=== PATIENT | male | born 1960 | race Caucasian/White ===

== ENCOUNTER → 2017-01-29 | Outpatient (CLI) | payer OTHER ==
[~2017-01-29] MED LIST: ASPI325T80 PO; METO-99 PO; OMNIPAQUE 350 MG/ML, 150 ML BOTTLE ONE
== END | disposition home or self-care (01) ==
LOC: CFH 09:30
PROVIDERS: ATTEND Internal Medicine Cardiovascular Disease
DX: Z01.818 Encounter for other preprocedural examination (principal); I48.91 Unspecified atrial fibrillation; I48.92 Unspecified atrial flutter
CPT/HCPCS: 71020; 75572; Q9967

== ENCOUNTER 2017-02-05 06:30 | Observation (INO) | payer OTHER ==
[~2017-02-05] VITALS: Ht 170.2 cm; Wt 75.0 kg
[~2017-02-05 06:30] MED LIST changes: -OMNIPAQUE 350 MG/ML, 150 ML BOTTLE ONE
[2017-02-05] MEDS ORDERED: SODIUM CHLORIDE 0.9% 1,000 ML IV SCH (06:44)
[2017-02-05 06:49] VITALS: BP 127/76
[2017-02-05] MEDS ORDERED: SODIUM CHLORIDE 0.9% 1,000 ML IV ONE (07:00)
[2017-02-05] MEDS ORDERED: APIX5TAB PO (07:03)
[2017-02-05] MEDS ORDERED: PROP150T2 PO (07:03)
[2017-02-05 07:11] LABS: HEMATOCRIT 43.3 % (39.2-51.8); HEMOGLOBIN 14.1 g/dL (13.7-18.0); WHITE BLOOD COUNT 4.3 x10^3/uL (3.4-10)
[2017-02-05 07:21] LABS: ASPARTATE AMINO TRANSFERASE 24 U/L (15-37); BLOOD UREA NITROGEN 19 mg/dL (7-18)
[2017-02-05] MEDS ORDERED: ISOPROTERENOL 0.2MG/ML, 5ML ONE (07:43)
[2017-02-05] MEDS ORDERED: PROTAMINE SULFATE 10 MG/ML, 5ML ONE (07:43)
[2017-02-05] MEDS ORDERED: LIDOCAINE 2%, 20ML ONE (07:44)
[2017-02-05] MEDS ORDERED: HEPARIN 1,000 UNITS/ML, 10ML ONE (07:44)
[2017-02-05] MEDS ORDERED: MIDAZOLAM 1 MG/ML, 5ML ONE (07:51)
[2017-02-05] MEDS ORDERED: FENTANYL PF 100 MCG/2ML ONE ×2 (07:51→09:04)
[2017-02-05] MEDS ORDERED: ONDANSETRON 2MG/ML, 2ML ONE ×2 (08:14→12:56)
[2017-02-05] MEDS ORDERED: MIDAZOLAM 1 MG/ML, 2ML ONE (08:14)
[2017-02-05] MEDS ORDERED: PROPOFOL 10 MG/ML, 20ML ONE (08:14)
[2017-02-05] MEDS ORDERED: DEXAMETHASONE 4 MG/ML, 1ML ONE (08:14)
[2017-02-05] MEDS ORDERED: SUCCINYLCHOLINE 20 MG/ML, 10ML ONE (08:14)
[2017-02-05] MEDS ORDERED: APIXABAN 5 MG TABLET PO ONE (08:30)
[2017-02-05] MEDS ORDERED: ZOLPIDEM 5MG TABLET PO PRN (11:30)
[2017-02-05] MEDS ORDERED: ACETAMINOPHEN 325 MG TABLET PO PRN (11:30)
[2017-02-05] MEDS: APIXABAN 5 MG TABLET PO SCH ×2 (11:30→20:48)
[2017-02-05] MEDS ORDERED: PROMETHAZINE 25 MG/ML, 1ML IV PRN (12:30)
[2017-02-05] MEDS ORDERED: ONDANSETRON 2MG/ML, 2ML IVPush PRN (12:30)
[2017-02-05] MEDS ORDERED: OXYcodone 5 MG/5 ML ORAL.SOL UDC PO PRN (12:30)
[2017-02-05] MEDS ORDERED: MEPERIDINE/PF 25MG/0.5ML IVPush PRN (12:30)
[2017-02-05] MEDS ORDERED: HYDROmorphone 1 MG/ML, 1ML IV PRN (12:30)
[2017-02-05] MEDS ORDERED: FENTANYL PF 100 MCG/2ML IV PRN (12:30)
[2017-02-05] MEDS ORDERED: MIDAZOLAM 1 MG/ML, 2ML IV PRN (12:30)
[2017-02-05] MEDS ORDERED: OXYcodone 5 MG/5 ML ORAL.SOL UDC ONE (12:40)
[2017-02-05] MEDS ORDERED: PROMETHAZINE 25 MG/ML, 1ML ONE (12:44)
[2017-02-05] MEDS ORDERED: METOCLOPRAMIDE 5 MG/ML, 2ML ONE (12:56)
[2017-02-05 13:25] LABS: FERRITIN 215.7 ng/mL (26-388)
[2017-02-05] MEDS ORDERED: RANITIDINE 50 MG in SODIUM CHLORIDE 0.9% 100 ML IV ONE (13:30)
[2017-02-05] MEDS ORDERED: FAMOTIDINE 20 MG/2 ML ONE (13:37)
[2017-02-05] MEDS ORDERED: FAMOTIDINE 20 MG/2 ML IVPush ONE (14:00)
[2017-02-05] MEDS: FLECAINIDE 100MG TABLET PO SCH (15:39)
[2017-02-05 18:41] VITALS: BP 122/67
[2017-02-06] MEDS: FLECAINIDE 100MG TABLET PO SCH ×2 (00:19→09:26)
[2017-02-06 03:53] VITALS: BP 117/60
[2017-02-06] MEDS ORDERED: FLEC100T PO (07:59)
[2017-02-06 08:30] VITALS: BP 109/66
[2017-02-06] MEDS: APIXABAN 5 MG TABLET PO SCH (09:26)
== END 2017-02-06 10:34 | disposition home or self-care (01) ==
LOC: CACL 06:30 → ORIP 11:26 → 5SO 14:00 → DCLOUNGE 02-06 10:30
PROVIDERS: ADMIT Internal Medicine Cardiovascular Disease; ATTEND Internal Medicine Cardiovascular Disease
DX: I48.91 Unspecified atrial fibrillation (principal); I48.92 Unspecified atrial flutter; Z79.01 Long term (current) use of anticoagulants
CPT/HCPCS: 36415; 80053; 82728; 83540; 83550; 85025; 85347; 85610; 85730; 93306; 93312; 93321; 93325; 93613; 93655; 93656; 93662; C1730; C1731; C1732; C1759; C1766; C1893; C1894; G0378; J0330; J1100; J1644; J2250; J2405; J2550; J2704; J2720; J3010; J3490; S0028

== ENCOUNTER 2017-09-22 17:43 | Inpatient (IN) | payer OTHER ==
[~2017-09-22] VITALS: Ht 170.2 cm; Wt 74.1 kg
[~2017-09-22 17:43] MED LIST changes: +APIX5TAB PO; +FLEC100T PO; +PROP150T2 PO
[2017-09-22] MEDS ORDERED: ASPI-515 PO (18:09)
[2017-09-22] MEDS ORDERED: OMEP20TA62 PO (18:09)
[2017-09-22] MEDS ORDERED: AMLO5TAB2 PO (18:09)
[2017-09-22 19:10] LABS: BASOPHILS # (AUTO) 0.02 x10^3/uL (0-0.1); BASOPHILS % (AUTO) 0 % (0-1); EOSINOPHILS # (AUTO) 0.03 x10^3/uL (0-0.4); EOSINOPHILS % (AUTO) 1 % (1-7); LYMPHOCYTES # (AUTO) 1.83 x10^3/uL (1-3.4); LYMPHOCYTES % (AUTO) 35 % (22-44); MD NO; MEAN CORPUSCULAR HEMOGLOBIN 23.8 pg (27.5-34.5); MEAN CORPUSCULAR HGB CONC 31.9 g/dL (33.2-36.2); MEAN CORPUSCULAR VOLUME 74.6 fL (81-97); MEAN PLATELET VOLUME 10.2 fL (7.4-10.4); MONOCYTES # (AUTO) 0.32 x10^3/uL (0.2-0.8); MONOCYTES % (AUTO) 6 % (2-9); NEUTROPHILS # (AUTO) 3.09 x10^3/uL (1.8-6.8); NEUTROPHILS % (AUTO) 58 % (42-75); PLATELET COUNT 152 x10^3/uL (130-400); RED BLOOD COUNT 6.34 x10^6/uL (4.38-5.82); RED CELL DISTRIBUTION WIDTH 16.1 % (9.4-14.8)
[2017-09-22 19:18] LABS: ANION GAP 7 mmol/L (5-15); CHLORIDE 112 mmol/L (98-107); CREATININE 1.16 mg/dL (0.7-1.3)
[2017-09-22] MEDS ORDERED: LIDOCAINE 1%, 10ML INFIL ONE (19:30)
[2017-09-22] MEDS ORDERED: LIDOCAINE-MPF 1%, 5ML ONE ×3 (20:23→23:42)
[2017-09-22] MEDS ORDERED: HYDROcodone/APAP 5/325 TABLET ONE (21:38)
[2017-09-22] MEDS ORDERED: OXYcodone/APAP 5/325MG TABLET ONE (21:58)
[2017-09-22] MEDS ORDERED: OXYcodone/APAP 5/325MG TABLET PO ONE (22:00)
[2017-09-22] MEDS ORDERED: HYDROcodone/APAP 5/325 TABLET PO ONE (22:00)
[2017-09-22] MEDS ORDERED: HYDROmorphone 1 MG/ML, 1ML IV ONE (23:00)
[2017-09-22] MEDS ORDERED: HYDROmorphone 2 MG/ML, 1ML IV ONE ×2 (23:00→23:30)
[2017-09-22] MEDS ORDERED: HYDROmorphone 2 MG/ML, 1ML ONE (23:05)
[2017-09-22] MEDS ORDERED: ONDANSETRON ODT 8 MG ONE (23:29)
[2017-09-22] MEDS ORDERED: ONDANSETRON ODT 8 MG PO ONE (23:30)
[2017-09-23] MEDS ORDERED: HYDROmorphone 2 MG/ML, 1ML ONE (00:48)
[2017-09-23] MEDS ORDERED: KETOROLAC 30 MG/1 ML IVPush ONE (01:30)
[2017-09-23] MEDS ORDERED: KETOROLAC 30 MG/1 ML ONE (02:16)
[2017-09-23 03:22] VITALS: BP 128/89
[2017-09-23] MEDS: FLECAINIDE 100MG TABLET PO SCH ×2 (06:30→18:30)
[2017-09-23] MEDS ORDERED: BISACODYL 10 MG SUPP PR PRN (06:30)
[2017-09-23] MEDS ORDERED: morphine SULFATE 10 MG/ML, 1ML IVPush PRN (06:30)
[2017-09-23] MEDS ORDERED: ONDANSETRON ODT 4 MG PO PRN (06:30)
[2017-09-23] MEDS ORDERED: hydrALAzine 20 MG/ML, 1ML IVPush PRN (06:30)
[2017-09-23] MEDS ORDERED: ONDANSETRON 2MG/ML, 2ML IVPush PRN (06:30)
[2017-09-23] MEDS ORDERED: DOCUSATE 100 MG CAPSULE PO PRN (06:30)
[2017-09-23] MEDS ORDERED: POLYETHYLENE GLYCOL 17 GM PACKET PO PRN (06:30)
[2017-09-23 06:43] LABS: HEMOGLOBIN A1C 5.1 % (4.2-6.3)
[2017-09-23 06:49] LABS: FREE T4 (FREE THYROXINE) 1.21 ng/dL (0.76-1.46); THYROID STIMULATING HORMONE 0.67 mIU/L (0.358-3.740)
[2017-09-23 06:55] VITALS: BP 117/79
[2017-09-23] MEDS: OMEPRAZOLE 20 MG CAPSULE.DR PO SCH (07:30)
[2017-09-23] MEDS: OXYcodone IR 5MG TABLET PO PRN ×3 (07:34→18:34)
[2017-09-23] MEDS: AMLODIPINE 5 MG TABLET PO SCH (07:47)
[2017-09-23 08:15] VITALS: BP 118/78
[2017-09-23] MEDS: KETOROLAC 30 MG/1 ML IVPush PRN ×2 (09:48→17:49)
[2017-09-23] MEDS: ASPIRIN 81 MG TABLET EC PO SCH (09:48)
[2017-09-23 14:00] VITALS: BP 111/77
[2017-09-23] MEDS: ACETAMINOPHEN 325 MG TABLET PO PRN (15:25)
[2017-09-23 15:50] VITALS: BP 115/79
[2017-09-23] MEDS: METOPROLOL TARTRATE 25 MG TABLET PO SCH (17:49)
[2017-09-23 20:29] VITALS: BP 105/69
[2017-09-24 00:33] VITALS: BP 107/70
[2017-09-24 05:54] LABS: BASOPHILS # (AUTO) 0.03 x10^3/uL (0-0.1); BASOPHILS % (AUTO) 1 % (0-1); EOSINOPHILS # (AUTO) 0.07 x10^3/uL (0-0.4); EOSINOPHILS % (AUTO) 1 % (1-7); LYMPHOCYTES # (AUTO) 2.03 x10^3/uL (1-3.4); LYMPHOCYTES % (AUTO) 45 % (22-44); MD NO; MEAN CORPUSCULAR HEMOGLOBIN 24.1 pg (27.5-34.5); MEAN CORPUSCULAR HGB CONC 32.3 g/dL (33.2-36.2); MEAN CORPUSCULAR VOLUME 74.4 fL (81-97); MEAN PLATELET VOLUME 9.2 fL (7.4-10.4); MONOCYTES # (AUTO) 0.36 x10^3/uL (0.2-0.8); MONOCYTES % (AUTO) 8 % (2-9); NEUTROPHILS # (AUTO) 2.07 x10^3/uL (1.8-6.8); NEUTROPHILS % (AUTO) 46 % (42-75); PLATELET COUNT 122 x10^3/uL (130-400); RED BLOOD COUNT 5.98 x10^6/uL (4.38-5.82); RED CELL DISTRIBUTION WIDTH 15.4 % (9.4-14.8)
[2017-09-24 06:08] LABS: ALBUMIN 3.6 g/dL (3.4-5.0); ANION GAP 5 mmol/L (5-15); CALCIUM 8.9 mg/dL (8.5-10.1); CHLORIDE 106 mmol/L (98-107)
[2017-09-24 06:13] LABS: ALANINE AMINOTRANSFERASE 21 U/L (12-78); ALKALINE PHOSPHATASE 41 U/L (45-117); BILIRUBIN,TOTAL 2.2 mg/dL (0.2-1.0); CHOL/HDL RATIO 3.4; CHOLESTEROL, TOTAL 140 mg/dL (140-239); CREATININE 1.35 mg/dL (0.7-1.3); HDL CHOL % 29 % (26-37); HDL CHOLESTEROL (DIRECT) 41 mg/dL (40-60); LDL CHOLESTEROL,CALCULATED 78 mg/dL (54-169); LDL/HDL RATIO 1.9 (0.5-3.0); TOTAL PROTEIN 6.3 g/dL (6.4-8.2); TRIGLYCERIDES 104 mg/dL (50-200); VLDL CHOLESTEROL 21 mg/dL (0-25)
[2017-09-24] MEDS: METOPROLOL TARTRATE 25 MG TABLET PO SCH ×2 (06:33→18:16)
[2017-09-24 06:51] VITALS: BP 112/76
[2017-09-24] MEDS ORDERED: FLEC50TA25 PO (06:55)
[2017-09-24 07:41] VITALS: BP 107/71
[2017-09-24] MEDS: FLECAINIDE 50MG TABLET PO SCH ×2 (07:43→20:26)
[2017-09-24] MEDS: ASPIRIN 81 MG TABLET EC PO SCH (07:48)
[2017-09-24] MEDS: AMLODIPINE 5 MG TABLET PO SCH (07:48)
[2017-09-24] MEDS: OMEPRAZOLE 20 MG CAPSULE.DR PO SCH (07:48)
[2017-09-24] MEDS: ACETAMINOPHEN 325 MG TABLET PO PRN (08:04)
[2017-09-24 13:25] VITALS: BP 116/82
[2017-09-24 18:15] VITALS: BP 109/71
[2017-09-24 19:05] VITALS: BP 104/70
[2017-09-25 02:13] VITALS: BP 100/64
[2017-09-25 05:35] VITALS: BP 107/71
[2017-09-25] MEDS: METOPROLOL TARTRATE 25 MG TABLET PO SCH ×2 (05:35→17:30)
[2017-09-25 07:56] VITALS: BP 115/77
[2017-09-25] MEDS: ACETAMINOPHEN 325 MG TABLET PO PRN (08:00)
[2017-09-25] MEDS: ASPIRIN 81 MG TABLET EC PO SCH (08:00)
[2017-09-25] MEDS: FLECAINIDE 50MG TABLET PO SCH ×2 (08:00→19:49)
[2017-09-25] MEDS: AMLODIPINE 5 MG TABLET PO SCH (08:00)
[2017-09-25] MEDS: OMEPRAZOLE 20 MG CAPSULE.DR PO SCH (08:00)
[2017-09-25 14:30] VITALS: BP 115/79
[2017-09-25 17:29] VITALS: BP 132/87
[2017-09-25] MEDS ORDERED: LIDOCAINE-MPF 2% ,5ML ONE (17:38)
[2017-09-25] MEDS ORDERED: FLUMAZENIL 0.1 MG/1 ML, 5ML ONE (17:47)
[2017-09-25] MEDS ORDERED: MIDAZOLAM 1 MG/ML, 5ML ONE (17:47)
[2017-09-25] MEDS ORDERED: FENTANYL PF 100 MCG/2ML ONE (17:47)
[2017-09-25] MEDS ORDERED: NALOXONE 1 MG/ML, 2ML ONE (17:47)
[2017-09-25 19:22] VITALS: BP 133/87
[2017-09-25] MEDS: OXYcodone IR 5MG TABLET PO PRN ×2 (19:49→20:20)
[2017-09-25] MEDS: KETOROLAC 30 MG/1 ML IVPush PRN (21:54)
[2017-09-26 03:51] VITALS: BP 107/78
[2017-09-26] MEDS: METOPROLOL TARTRATE 25 MG TABLET PO SCH ×2 (05:46→18:34)
[2017-09-26] MEDS: OXYcodone IR 5MG TABLET PO PRN ×4 (05:46→19:44)
[2017-09-26] MEDS: OMEPRAZOLE 20 MG CAPSULE.DR PO SCH (07:30)
[2017-09-26 08:19] VITALS: BP 120/85
[2017-09-26] MEDS: ASPIRIN 81 MG TABLET EC PO SCH (08:21)
[2017-09-26] MEDS: FLECAINIDE 50MG TABLET PO SCH ×2 (08:21→19:44)
[2017-09-26] MEDS: AMLODIPINE 5 MG TABLET PO SCH (08:21)
[2017-09-26 14:00] VITALS: BP 123/72
[2017-09-26] MEDS: KETOROLAC 30 MG/1 ML IVPush PRN (18:34)
[2017-09-26 18:50] VITALS: BP 101/69
[2017-09-27 05:27] VITALS: BP 99/65
[2017-09-27] MEDS: METOPROLOL TARTRATE 25 MG TABLET PO SCH ×2 (05:35→18:12)
[2017-09-27 05:47] LABS: BASOPHILS # (AUTO) 0.01 x10^3/uL (0-0.1); BASOPHILS % (AUTO) 0 % (0-1); EOSINOPHILS # (AUTO) 0.09 x10^3/uL (0-0.4); EOSINOPHILS % (AUTO) 2 % (1-7); LYMPHOCYTES # (AUTO) 2.24 x10^3/uL (1-3.4); LYMPHOCYTES % (AUTO) 49 % (22-44); MD NO; MEAN CORPUSCULAR HEMOGLOBIN 23.9 pg (27.5-34.5); MEAN CORPUSCULAR HGB CONC 32.6 g/dL (33.2-36.2); MEAN CORPUSCULAR VOLUME 73.4 fL (81-97); MEAN PLATELET VOLUME 10.2 fL (7.4-10.4); MONOCYTES # (AUTO) 0.35 x10^3/uL (0.2-0.8); MONOCYTES % (AUTO) 8 % (2-9); NEUTROPHILS # (AUTO) 1.94 x10^3/uL (1.8-6.8); NEUTROPHILS % (AUTO) 42 % (42-75); PLATELET COUNT 119 x10^3/uL (130-400); RED BLOOD COUNT 5.71 x10^6/uL (4.38-5.82); RED CELL DISTRIBUTION WIDTH 15.6 % (9.4-14.8)
[2017-09-27 05:59] LABS: ALBUMIN 3.5 g/dL (3.4-5.0); ANION GAP 6 mmol/L (5-15); CALCIUM 8.6 mg/dL (8.5-10.1); CHLORIDE 107 mmol/L (98-107)
[2017-09-27 06:04] LABS: ALANINE AMINOTRANSFERASE 21 U/L (12-78); ALKALINE PHOSPHATASE 40 U/L (45-117); BILIRUBIN,TOTAL 1.4 mg/dL (0.2-1.0); CREATININE 1.16 mg/dL (0.7-1.3); TOTAL PROTEIN 6.3 g/dL (6.4-8.2)
[2017-09-27] MEDS: OMEPRAZOLE 20 MG CAPSULE.DR PO SCH (07:30)
[2017-09-27] MEDS: FLECAINIDE 50MG TABLET PO SCH ×2 (08:09→20:10)
[2017-09-27] MEDS: ASPIRIN 81 MG TABLET EC PO SCH (08:09)
[2017-09-27] MEDS: AMLODIPINE 5 MG TABLET PO SCH (08:09)
[2017-09-27 08:16] VITALS: BP 102/68
[2017-09-27 14:17] VITALS: BP 102/69
[2017-09-27] MEDS: OXYcodone IR 5MG TABLET PO PRN ×2 (16:32→20:32)
[2017-09-27 19:06] VITALS: BP 106/71
[2017-09-28 01:42] VITALS: BP 110/60
[2017-09-28] MEDS: OXYcodone IR 5MG TABLET PO PRN ×5 (03:07→20:48)
[2017-09-28 05:10] LABS: CHLORIDE 109 mmol/L (98-107)
[2017-09-28 05:18] LABS: ANION GAP 5 mmol/L (5-15); CALCIUM 8.5 mg/dL (8.5-10.1); CREATININE 1.21 mg/dL (0.7-1.3)
[2017-09-28] MEDS: METOPROLOL TARTRATE 25 MG TABLET PO SCH ×2 (06:16→17:21)
[2017-09-28 07:16] VITALS: BP 118/73
[2017-09-28] MEDS: OMEPRAZOLE 20 MG CAPSULE.DR PO SCH (07:30)
[2017-09-28] MEDS: ASPIRIN 81 MG TABLET EC PO SCH (07:58)
[2017-09-28] MEDS: FLECAINIDE 50MG TABLET PO SCH ×2 (07:58→20:48)
[2017-09-28] MEDS: AMLODIPINE 5 MG TABLET PO SCH (07:58)
[2017-09-28 12:15] VITALS: BP 118/78
[2017-09-28 20:49] VITALS: BP 116/73
[2017-09-29 03:12] VITALS: BP 102/66
[2017-09-29] MEDS: OMEPRAZOLE 20 MG CAPSULE.DR PO SCH ×2 (06:12→06:16)
[2017-09-29] MEDS: OXYcodone IR 5MG TABLET PO PRN ×4 (06:13→20:59)
[2017-09-29] MEDS: METOPROLOL TARTRATE 25 MG TABLET PO SCH ×2 (06:13→17:32)
[2017-09-29 07:23] VITALS: BP 100/68
[2017-09-29] MEDS: FLECAINIDE 50MG TABLET PO SCH ×2 (07:53→19:48)
[2017-09-29 08:44] VITALS: BP 96/71
[2017-09-29] MEDS: AMLODIPINE 5 MG TABLET PO SCH (09:00)
[2017-09-29] MEDS: ASPIRIN 81 MG TABLET EC PO SCH (09:29)
[2017-09-29 13:06] VITALS: BP 103/69
[2017-09-29 19:46] VITALS: BP 120/79
[2017-09-30 02:21] VITALS: BP 109/73
[2017-09-30 05:25] VITALS: BP 101/66
[2017-09-30 05:41] LABS: ANION GAP 5 mmol/L (5-15); CHLORIDE 106 mmol/L (98-107)
[2017-09-30 05:44] LABS: CALCIUM 8.9 mg/dL (8.5-10.1); CREATININE 1.21 mg/dL (0.7-1.3)
[2017-09-30] MEDS: METOPROLOL TARTRATE 25 MG TABLET PO SCH ×2 (05:55→18:06)
[2017-09-30 06:11] LABS: BASOPHILS # (AUTO) 0.03 x10^3/uL (0-0.1); BASOPHILS % (AUTO) 1 % (0-1); EOSINOPHILS # (AUTO) 0.11 x10^3/uL (0-0.4); EOSINOPHILS % (AUTO) 2 % (1-7); LYMPHOCYTES # (AUTO) 1.97 x10^3/uL (1-3.4); LYMPHOCYTES % (AUTO) 39 % (22-44); MD NO; MEAN CORPUSCULAR HGB CONC 32.5 g/dL (33.2-36.2); MEAN CORPUSCULAR VOLUME 73.9 fL (81-97); MEAN PLATELET VOLUME 10.4 fL (7.4-10.4); MONOCYTES # (AUTO) 0.37 x10^3/uL (0.2-0.8); MONOCYTES % (AUTO) 7 % (2-9); NEUTROPHILS # (AUTO) 2.53 x10^3/uL (1.8-6.8); NEUTROPHILS % (AUTO) 51 % (42-75); PLATELET COUNT 117 x10^3/uL (130-400); RED BLOOD COUNT 6.04 x10^6/uL (4.38-5.82); RED CELL DISTRIBUTION WIDTH 15.5 % (9.4-14.8)
[2017-09-30 07:09] VITALS: BP 108/74
[2017-09-30] MEDS: FLECAINIDE 50MG TABLET PO SCH ×2 (09:15→19:59)
[2017-09-30] MEDS: ASPIRIN 81 MG TABLET EC PO SCH (09:15)
[2017-09-30] MEDS: AMLODIPINE 5 MG TABLET PO SCH (09:16)
[2017-09-30] MEDS: ACETAMINOPHEN 325 MG TABLET PO PRN ×2 (18:06→18:08)
[2017-09-30 18:56] VITALS: BP 110/74
[2017-10-01 01:05] VITALS: BP 106/71
[2017-10-01 05:55] VITALS: BP 107/76
[2017-10-01] MEDS: METOPROLOL TARTRATE 25 MG TABLET PO SCH ×3 (05:56→19:04)
[2017-10-01] MEDS ORDERED: BUPIVACAINE/PF 0.5% ONE (06:55)
[2017-10-01] MEDS ORDERED: EPINEPHRINE 1 MG/ML, 1ML ONE (06:55)
[2017-10-01 08:04] VITALS: BP 118/86
[2017-10-01] MEDS: ASPIRIN 81 MG TABLET EC PO SCH (08:31)
[2017-10-01] MEDS: AMLODIPINE 5 MG TABLET PO SCH (08:31)
[2017-10-01] MEDS: FLECAINIDE 50MG TABLET PO SCH ×3 (08:31→19:56)
[2017-10-01] MEDS ORDERED: FENTANYL PF 100 MCG/2ML ONE ×2 (12:05→15:28)
[2017-10-01] MEDS ORDERED: MIDAZOLAM 1 MG/ML, 2ML ONE (12:05)
[2017-10-01] MEDS ORDERED: GABAPENTIN 300 MG CAPSULE PO ONE (12:30)
[2017-10-01] MEDS ORDERED: ONDANSETRON ODT 8 MG PO ONE (12:30)
[2017-10-01] MEDS ORDERED: ACETAMINOPHEN 500 MG TABLET PO ONE (12:30)
[2017-10-01] MEDS ORDERED: OxyconTIN ER 20 MG TAB.ER PO ONE (12:30)
[2017-10-01] MEDS ORDERED: CEFAZOLIN 1,000 MG ONE (12:33)
[2017-10-01] MEDS ORDERED: LIDOCAINE GEL 2%, 5ML ONE ×2 (12:33)
[2017-10-01] MEDS ORDERED: PROPOFOL 10 MG/ML, 20ML ONE (12:33)
[2017-10-01] MEDS ORDERED: GLYCOPYRROLATE 0.2MG/1ML, 5ML ONE (12:33)
[2017-10-01] MEDS ORDERED: DEXAMETHASONE 4 MG/ML, 1ML ONE (12:33)
[2017-10-01] MEDS ORDERED: LIDOCAINE-MPF 2% ,5ML ONE ×2 (12:33)
[2017-10-01] MEDS ORDERED: NEOSTIGMINE 1 MG/ML, 10ML ONE (12:33)
[2017-10-01] MEDS ORDERED: SUCCINYLCHOLINE 20 MG/ML, 10ML ONE (12:33)
[2017-10-01] MEDS ORDERED: ONDANSETRON 2MG/ML, 2ML ONE ×2 (12:33→16:44)
[2017-10-01] MEDS ORDERED: ROCURONIUM 10MG/ML,5ML ONE (12:33)
[2017-10-01] MEDS ORDERED: OxyconTIN ER 10 MG TAB.ER ONE (12:44)
[2017-10-01] MEDS ORDERED: OXYcodone 5 MG/5 ML ORAL.SOL UDC PO PRN (15:00)
[2017-10-01] MEDS ORDERED: LABETALOL 5MG/ML, 20ML IV PRN (15:00)
[2017-10-01] MEDS ORDERED: LORazepam 2 MG/ML, 1ML IVPush PRN (15:00)
[2017-10-01] MEDS ORDERED: MIDAZOLAM 1 MG/ML, 2ML IV PRN (15:00)
[2017-10-01] MEDS ORDERED: SCOPOLAMINE PATCH, 1.5MG PATCH.TD72 TD PRN (15:00)
[2017-10-01] MEDS ORDERED: PROMETHAZINE 25 MG/ML, 1ML IV PRN (15:00)
[2017-10-01] MEDS ORDERED: MORPHINE SULFATE 4 MG/ML, 1ML IVPush PRN (15:00)
[2017-10-01] MEDS ORDERED: DIPHENHYDRAMINE 50 MG/ML, 1ML IVPush PRN (15:00)
[2017-10-01] MEDS ORDERED: DIAZEPAM 5 MG/ML, 2ML IVPush PRN (15:00)
[2017-10-01] MEDS ORDERED: hydrALAzine 20 MG/ML, 1ML IV PRN (15:00)
[2017-10-01] MEDS ORDERED: MEPERIDINE/PF 25MG/0.5ML IVPush PRN (15:00)
[2017-10-01] MEDS ORDERED: ALBUTEROL/IPRATROPIUM 2.5MG/0.5MG, 3 ML NPPB PRN (15:00)
[2017-10-01] MEDS ORDERED: EPHEDRINE 50 MG/ML, 1ML IM PRN (15:00)
[2017-10-01] MEDS: FENTANYL PF 100 MCG/2ML IV PRN ×3 (15:25→15:40)
[2017-10-01] MEDS ORDERED: morphine SULFATE 10 MG/ML, 1ML IVPush PRN (15:30)
[2017-10-01] MEDS ORDERED: HYDROmorphone 1 MG/ML, 1ML ONE (15:48)
[2017-10-01] MEDS: HYDROmorphone 1 MG/ML, 1ML IV PRN ×3 (15:50→16:10)
[2017-10-01 18:59] VITALS: BP 106/66
[2017-10-01 19:54] VITALS: BP 107/72
[2017-10-01] MEDS: OXYcodone IR 5MG TABLET PO PRN (21:16)
[2017-10-02 00:54] VITALS: BP 104/69
[2017-10-02] MEDS: ACETAMINOPHEN 325 MG TABLET PO PRN (00:59)
[2017-10-02] MEDS: OXYcodone IR 5MG TABLET PO PRN ×4 (02:36→17:13)
[2017-10-02 05:22] LABS: BASOPHILS # (AUTO) 0.01 x10^3/uL (0-0.1); BASOPHILS % (AUTO) 0 % (0-1); EOSINOPHILS % (AUTO) 0 % (1-7); LYMPHOCYTES # (AUTO) 0.65 x10^3/uL (1-3.4); LYMPHOCYTES % (AUTO) 9 % (22-44); MD NO; MEAN CORPUSCULAR HEMOGLOBIN 23.9 pg (27.5-34.5); MEAN CORPUSCULAR HGB CONC 32.3 g/dL (33.2-36.2); MEAN CORPUSCULAR VOLUME 73.8 fL (81-97); MEAN PLATELET VOLUME 9.5 fL (7.4-10.4); MONOCYTES # (AUTO) 0.26 x10^3/uL (0.2-0.8); MONOCYTES % (AUTO) 4 % (2-9); NEUTROPHILS # (AUTO) 6.46 x10^3/uL (1.8-6.8); NEUTROPHILS % (AUTO) 88 % (42-75); PLATELET COUNT 110 x10^3/uL (130-400); RED BLOOD COUNT 5.47 x10^6/uL (4.38-5.82); RED CELL DISTRIBUTION WIDTH 15.5 % (9.4-14.8)
[2017-10-02 05:28] LABS: ANION GAP 7 mmol/L (5-15); CALCIUM 8.8 mg/dL (8.5-10.1); CHLORIDE 105 mmol/L (98-107)
[2017-10-02 05:31] LABS: CREATININE 1.24 mg/dL (0.7-1.3)
[2017-10-02 06:20] VITALS: BP 101/68
[2017-10-02] MEDS: METOPROLOL TARTRATE 25 MG TABLET PO SCH ×2 (06:22→17:12)
[2017-10-02] MEDS ORDERED: ASPIRIN 81 MG TABLET EC PO SCH (09:00)
[2017-10-02] MEDS: ASPIRIN 325 MG TABLET EC PO SCH (09:00)
[2017-10-02] MEDS: AMLODIPINE 5 MG TABLET PO SCH (09:10)
[2017-10-02] MEDS ORDERED: ASPIRIN 325 MG TABLET EC ONE (09:20)
[2017-10-02] MEDS: FLECAINIDE 50MG TABLET PO SCH ×2 (09:22→19:55)
[2017-10-02 13:33] VITALS: BP 99/66
[2017-10-02 18:46] VITALS: BP 108/71
[2017-10-03 00:48] VITALS: BP 106/71
[2017-10-03] MEDS: OXYcodone IR 5MG TABLET PO PRN ×3 (02:23→11:40)
[2017-10-03 06:31] VITALS: BP 118/76
[2017-10-03] MEDS: METOPROLOL TARTRATE 25 MG TABLET PO SCH (06:31)
[2017-10-03 07:41] VITALS: BP 122/80
[2017-10-03] MEDS: ASPIRIN 325 MG TABLET EC PO SCH (07:53)
[2017-10-03] MEDS: FLECAINIDE 50MG TABLET PO SCH (07:53)
[2017-10-03] MEDS: AMLODIPINE 5 MG TABLET PO SCH (07:54)
[2017-10-03] MEDS ORDERED: ASPI-650 PO (13:14)
[2017-10-03] MEDS ORDERED: METO25TA35 PO (13:14)
[2017-10-03] MEDS ORDERED: OXYC5TAB3 PO (13:14)
== END 2017-10-03 16:18 | disposition home or self-care (01) | DRG 166 ==
LOC: ED 22:34 → EDIP 09-23 01:37 → 4WST 09-23 02:48 → 5SO 09-23 08:14 → 4NOR 10-01 17:27 → 5SO 10-01 18:46 → DCLOUNGE 10-03 15:58
PROVIDERS: ADMIT Internal Medicine; ATTEND Internal Medicine
PROC: 0W9B30Z Drainage of Left Pleural Cavity with Drainage Device, Percutaneous Approach (ICD-10-PCS; 2017-09-22)
PROC: 0W9B30Z Drainage of Left Pleural Cavity with Drainage Device, Percutaneous Approach (ICD-10-PCS; principal; 2017-09-25)
PROC: 0WPB30Z Removal of Drainage Device from Left Pleural Cavity, Percutaneous Approach (ICD-10-PCS; 2017-09-25)
PROC: 5A09357 Assistance with Respiratory Ventilation, Less than 24 Consecutive Hours, Continuous Positive Airway Pressure (ICD-10-PCS; 2017-09-28)
PROC: 0BBG4ZX Excision of Left Upper Lung Lobe, Percutaneous Endoscopic Approach, Diagnostic (ICD-10-PCS; 2017-10-01)
PROC: 0BBC4ZX Excision of Right Upper Lung Lobe, Percutaneous Endoscopic Approach, Diagnostic (ICD-10-PCS; 2017-10-01)
PROC: 5A09357 Assistance with Respiratory Ventilation, Less than 24 Consecutive Hours, Continuous Positive Airway Pressure (ICD-10-PCS; 2017-10-01)
DX: J93.11 Primary spontaneous pneumothorax (principal); J96.00 Acute respiratory failure, unspecified whether with hypoxia or hypercapnia; N17.0 Acute kidney failure with tubular necrosis; Q24.5 Malformation of coronary vessels; I48.92 Unspecified atrial flutter; J98.11 Atelectasis; I48.2 Chronic atrial fibrillation; K21.9 Gastro-esophageal reflux disease without esophagitis; J93.82 Other air leak; Z79.82 Long term (current) use of aspirin; Z79.899 Other long term (current) drug therapy; Z83.3 Family history of diabetes mellitus; J43.9 Emphysema, unspecified
CPT/HCPCS: 32551; 32557; 36415; 71045; 71046; 71250; 80048; 80053; 80061; 82728; 83021; 83036; 83540; 83550; 83735; 84439; 84443; 84466; 85025; 85660; 88305; 93005; 96374; 96375; 96376; 99156; 99157; C1729; J0171; J0690; J1100; J1170; J1885; J2250; J2405; J2704; J2710; J3010; J3490; Q0162; C1769; J0330; J2310

== ENCOUNTER 2018-03-09 10:18 | Emergency (ER) | payer OTHER ==
[~2018-03-09] VITALS: Ht 170.2 cm; Wt 72.0 kg
[~2018-03-09 10:18] MED LIST changes: +AMLO5TAB7 PO; +ASPI-515 PO; +ASPI-650 PO; +FLEC50TA25 PO; +METO25TA35 PO; +METO50TA82 PO; +OMEP20TA62 PO; +OXYC5TAB3 PO
[2018-03-09] MEDS ORDERED: ASPIRIN 81 MG TABLET CHEW PO ONE (11:00)
[2018-03-09] MEDS ORDERED: ASPIRIN 81 MG TABLET CHEW ONE (11:05)
[2018-03-09 11:13] LABS: BASOPHILS # (AUTO) 0.01 x10^3/uL (0-0.1); BASOPHILS % (AUTO) 0 % (0-1); EOSINOPHILS # (AUTO) 0.01 x10^3/uL (0-0.4); EOSINOPHILS % (AUTO) 0 % (1-7); LYMPHOCYTES # (AUTO) 1.38 x10^3/uL (1-3.4); LYMPHOCYTES % (AUTO) 35 % (22-44); MD NO; MEAN CORPUSCULAR HEMOGLOBIN 24.5 pg (27.5-34.5); MEAN CORPUSCULAR HGB CONC 33.2 g/dL (33.2-36.2); MEAN CORPUSCULAR VOLUME 73.8 fL (81-97); MEAN PLATELET VOLUME 9.1 fL (7.4-10.4); MONOCYTES # (AUTO) 0.27 x10^3/uL (0.2-0.8); MONOCYTES % (AUTO) 7 % (2-9); NEUTROPHILS # (AUTO) 2.23 x10^3/uL (1.8-6.8); NEUTROPHILS % (AUTO) 57 % (42-75); PLATELET COUNT 148 x10^3/uL (130-400); RED BLOOD COUNT 6.18 x10^6/uL (4.38-5.82); RED CELL DISTRIBUTION WIDTH 16.7 % (9.4-14.8)
[2018-03-09 12:41] LABS: ALBUMIN 4.3 g/dL (3.4-5.0); ANION GAP 6 mmol/L (5-15); CALCIUM 8.7 mg/dL (8.5-10.1); CHLORIDE 111 mmol/L (98-107)
[2018-03-09 12:49] LABS: CREATININE 1.07 mg/dL (0.7-1.3); TROPONIN I < 0.015 ng/mL (0.000-0.045)
[2018-03-09 13:05] LABS: T4 (THYROXINE) 9.1 mcg/dL (4.5-12.1)
[2018-03-09] MEDS ORDERED: DILTIAZEM 125 MG in DEXTROSE 5% 100 ML IV SCH (14:00)
[2018-03-09] MEDS ORDERED: DILTIAZEM 5 MG/ML, 5ML IV ONE (14:00)
[2018-03-09] MEDS ORDERED: ADENOSINE 6 MG/2 ML ONE (14:02)
[2018-03-09] MEDS ORDERED: PROPOFOL 10 MG/ML, 20ML ONE (14:36)
[2018-03-09 17:08] VITALS: BP 128/76
== END 2018-03-09 17:11 | disposition home or self-care (01) ==
LOC: ED 13:58
DX: I48.92 Unspecified atrial flutter (principal); I48.91 Unspecified atrial fibrillation
CPT/HCPCS: 36415; 71046; 80048; 82040; 83880; 84436; 84443; 84484; 85025; 93005; 93312; 93321; 93325; 99285

== ENCOUNTER 2018-04-15 06:36 | Observation (INO) | payer OTHER ==
[2018-04-13 10:45] VITALS: BP 140/69
[2018-04-13 10:50] LABS: BASOPHILS % (AUTO) 0 % (0-1); EOSINOPHILS # (AUTO) 0.01 x10^3/uL (0-0.4); EOSINOPHILS % (AUTO) 0 % (1-7); LYMPHOCYTES # (AUTO) 1.48 x10^3/uL (1-3.4); LYMPHOCYTES % (AUTO) 36 % (22-44); MD NO; MEAN CORPUSCULAR HEMOGLOBIN 24.1 pg (27.5-34.5); MEAN CORPUSCULAR HGB CONC 32.5 g/dL (33.2-36.2); MEAN CORPUSCULAR VOLUME 74.3 fL (81-97); MEAN PLATELET VOLUME 8.9 fL (7.4-10.4); MONOCYTES # (AUTO) 0.25 x10^3/uL (0.2-0.8); MONOCYTES % (AUTO) 6 % (2-9); NEUTROPHILS # (AUTO) 2.37 x10^3/uL (1.8-6.8); NEUTROPHILS % (AUTO) 58 % (42-75); PLATELET COUNT 149 x10^3/uL (130-400); RED BLOOD COUNT 5.44 x10^6/uL (4.38-5.82)
[2018-04-13 10:59] LABS: ALBUMIN 4.4 g/dL (3.4-5.0); ANION GAP 5 mmol/L (5-15); CALCIUM 8.5 mg/dL (8.5-10.1); CHLORIDE 110 mmol/L (98-107)
[2018-04-13 11:03] LABS: ALANINE AMINOTRANSFERASE 29 U/L (12-78); ALKALINE PHOSPHATASE 49 U/L (45-117); CREATININE 1.08 mg/dL (0.7-1.3)
[~2018-04-15] VITALS: Ht 170.2 cm; Wt 74.2 kg
[~2018-04-15 06:36] MED LIST changes: +AMLO-150 PO; -AMLO5TAB7 PO
[2018-04-15] MEDS ORDERED: SODIUM CHLORIDE 0.9% 1,000 ML IV SCH (06:51)
[2018-04-15] MEDS ORDERED: MIDAZOLAM 1 MG/ML, 2ML ONE (07:33)
[2018-04-15] MEDS ORDERED: FENTANYL PF 250 MCG/5ML ONE (07:33)
[2018-04-15] MEDS ORDERED: PROPOFOL 10 MG/ML, 20ML ONE (07:34)
[2018-04-15] MEDS ORDERED: ROCURONIUM 10MG/ML,5ML ONE (07:34)
[2018-04-15] MEDS ORDERED: SUCCINYLCHOLINE 20 MG/ML, 10ML ONE (07:34)
[2018-04-15] MEDS ORDERED: DEXAMETHASONE 4 MG/ML, 1ML ONE (07:37)
[2018-04-15] MEDS ORDERED: ONDANSETRON 2MG/ML, 2ML ONE (07:37)
[2018-04-15] MEDS ORDERED: PROTAMINE SULFATE 10 MG/ML, 5ML ONE (07:40)
[2018-04-15] MEDS ORDERED: CEFAZOLIN 1,000 MG ONE (07:50)
[2018-04-15] MEDS ORDERED: HEPARIN 1,000 UNITS/ML, 10ML ONE ×2 (08:10→09:51)
[2018-04-15] MEDS ORDERED: ISOPROTERENOL 0.2MG/ML, 1ML ONE (08:29)
[2018-04-15] MEDS ORDERED: ISOPROTERENOL 0.2MG/ML, 5ML ONE (08:43)
[2018-04-15] MEDS ORDERED: FENTANYL PF 100 MCG/2ML ONE (12:01)
[2018-04-15] MEDS ORDERED: ACETAMINOPHEN 325 MG TABLET PO PRN ×2 (12:30→13:00)
[2018-04-15] MEDS ORDERED: ZOLPIDEM 5MG TABLET PO PRN (12:30)
[2018-04-15] MEDS ORDERED: HYDROmorphone 2 MG/ML, 1ML IVPush PRN (13:00)
[2018-04-15] MEDS ORDERED: DIAZEPAM 5 MG/ML, 2ML IVPush PRN (13:00)
[2018-04-15] MEDS ORDERED: ONDANSETRON ODT 8 MG PO PRN (13:00)
[2018-04-15] MEDS ORDERED: hydrALAzine 20 MG/ML, 1ML IV PRN (13:00)
[2018-04-15] MEDS ORDERED: EPHEDRINE 50 MG/ML, 1ML IVPush PRN (13:00)
[2018-04-15] MEDS ORDERED: PROMETHAZINE 25 MG/ML, 1ML IV PRN (13:00)
[2018-04-15] MEDS ORDERED: MIDAZOLAM 1 MG/ML, 2ML IV PRN (13:00)
[2018-04-15] MEDS ORDERED: OXYcodone 5 MG/5 ML ORAL.SOL UDC PO PRN (13:00)
[2018-04-15] MEDS ORDERED: MORPHINE SULFATE 4 MG/ML, 1ML IVPush PRN (13:00)
[2018-04-15] MEDS ORDERED: HALOPERIDOL 5 MG/ML IV PRN (13:00)
[2018-04-15] MEDS ORDERED: LABETALOL 5MG/ML, 20ML IV PRN (13:00)
[2018-04-15] MEDS ORDERED: PROMETHAZINE 12.5 MG SUPP PR PRN (13:00)
[2018-04-15] MEDS ORDERED: ONDANSETRON 2MG/ML, 2ML IV PRN (13:00)
[2018-04-15] MEDS ORDERED: ALBUTEROL SULFATE 2.5 MG/3 ML NPPB PRN (13:00)
[2018-04-15] MEDS ORDERED: MEPERIDINE/PF 25MG/0.5ML IVPush PRN (13:00)
[2018-04-15] MEDS ORDERED: FENTANYL PF 100 MCG/2ML IV PRN (13:00)
[2018-04-15] MEDS ORDERED: APIXABAN 5 MG TABLET ONE (13:17)
[2018-04-15] MEDS ORDERED: HALOPERIDOL 5 MG/ML ONE (13:29)
[2018-04-15] MEDS ORDERED: PROMETHAZINE 25 MG/ML, 1ML ONE (13:29)
[2018-04-15] MEDS ORDERED: SODIUM CITRATE/CITRIC ACID 30 ML UDC ONE (14:20)
[2018-04-15] MEDS ORDERED: SODIUM CITRATE/CITRIC ACID 30 ML UDC PO ONE (14:30)
[2018-04-15 14:38] VITALS: BP 109/69
[2018-04-15] MEDS ORDERED: HYDROcodone/APAP 5/325 TABLET PO PRN (15:30)
[2018-04-15] MEDS ORDERED: CALCIUM CARBONATE 500 MG TAB.CHEW PO PRN (15:30)
[2018-04-15] MEDS ORDERED: KETOROLAC 30 MG/1 ML IVPush ONE (15:30)
[2018-04-15] MEDS: APIXABAN 5 MG TABLET PO SCH (15:37)
[2018-04-15] MEDS: FLECAINIDE 100MG TABLET PO SCH (20:12)
[2018-04-15 20:16] VITALS: BP 100/59
[2018-04-16 02:02] VITALS: BP 108/54
[2018-04-16] MEDS: FLECAINIDE 100MG TABLET PO SCH (06:33)
[2018-04-16] MEDS ORDERED: ALBUTEROL/IPRATROPIUM 2.5MG/0.5MG, 3 ML ONE (06:41)
[2018-04-16 08:00] VITALS: BP 104/49
[2018-04-16] MEDS: APIXABAN 5 MG TABLET PO SCH (08:00)
[2018-04-16] MEDS ORDERED: ACET325T14 PO (08:21)
== END 2018-04-16 12:42 | disposition home or self-care (01) ==
LOC: CACL 06:36 → ORIP 12:17 → 5SO 14:34 → DCLOUNGE 04-16 12:30
PROVIDERS: ADMIT Internal Medicine Cardiovascular Disease; ATTEND Internal Medicine Cardiovascular Disease
DX: I48.4 Atypical atrial flutter (principal); I48.91 Unspecified atrial fibrillation
CPT/HCPCS: 36415; 71046; 80053; 85025; 85347; 93005; 93306; 93462; 93613; 93621; 93653; 93662; 96374; C1730; C1731; C1732; C1759; C1766; C1893; C1894; C2630; G0378; J0330; J0690; J1100; J1644; J1885; J2250; J2405; J2550; J2704; J2720; J3010

== ENCOUNTER 2019-06-09 13:28 | Emergency (ER) | payer OTHER ==
[~2019-06-09] VITALS: Ht 170.2 cm; Wt 78.4 kg
[~2019-06-09 13:28] MED LIST changes: +ACET325T14 PO; +ATOR10TA PO
[2019-06-09] MEDS ORDERED: ASPIRIN 81 MG TABLET CHEW ONE (13:48)
[2019-06-09] MEDS ORDERED: ASPIRIN 81 MG TABLET CHEW PO ONE (14:00)
[2019-06-09 14:02] VITALS: BP 121/66
--- NOTE | 2019-06-09 14:08 | NUR ---
PT WITH CP/SOB THAT STARTED THIS AFTERNOON WHILE ON THE TREADMILL. PT STATES IT WAS RELIEVED WITH REST, BUT THEN PT DID EXPERIENCE A SIMILAR EPISODE WHILE SITTING THIS AFTERNOON. PT IS CURRENTLY CP FREE, NO SOB REPORTED. PT TO CARD MONITOR, BP, CONT PULSE OX. LAB IN TO DRAW LABS. ERMD IN TO EVAL PT. PER ERMD ASA/DX CHEST NOT NEEDED
[2019-06-09 14:34] LABS: TROPONIN I < 0.015 ng/mL (0.000-0.045)
== END 2019-06-09 15:58 | disposition home or self-care (01) ==
LOC: ED 14:57
DX: K21.9 Gastro-esophageal reflux disease without esophagitis (principal); I48.91 Unspecified atrial fibrillation; R07.89 Other chest pain; I50.9 Heart failure, unspecified
CPT/HCPCS: 36415; 71045; 84484; 93005; 99284

== ENCOUNTER 2019-11-01 12:11 | Outpatient (CLI) | payer OTHER | END 2019-11-01 23:59 | disposition home or self-care (01) | LOC: CFH 12:11 | PROVIDERS: ATTEND Physician Assistant Medical | DX: Z02.9 Encounter for administrative examinations, unspecified (principal) ==